=== PATIENT | female | born 1990 | race Native Hawaiian/Other Pacific Islander ===

== ENCOUNTER 2018-07-06 12:36 | Emergency (ER) | payer OTHER ==
[2018-07-06 13:14] LABS: Basophils # (Auto) 0.1 K/mm3 (0.0-0.1); Basophils % (Auto) 0.6 % (0.0-1.8); Eosinophils # (Auto) 0.5 K/mm3 (0.0-0.4); Eosinophils % (Auto) 3.4 % (0.0-4.3); Hematocrit 40.7 % (30.3-42.9); Hemoglobin 13.1 gm/dl (10.1-14.3); Lymphocytes # (Auto) 2.7 K/mm3 (1.2-5.4); Lymphocytes % (Auto) 19.6 % (13.4-35.0); Mean Corpuscular HGB Conc 32 % (30-34); Mean Corpuscular Hemoglobin 27 pg (28-32); Mean Corpuscular Volume 84 fl (79-97); Monocytes # (Auto) 0.8 K/mm3 (0.0-0.8); Monocytes % (Auto) 6.2 % (0.0-7.3); Platelet Count 260 K/mm3 (140-440); Red Blood Count 4.84 M/mm3 (3.65-5.03); Red Cell Distribution Width 15.3 % (13.2-15.2)
--- NOTE | 2018-07-06 13:34 | Cat Scan Report ---
CT HEAD WITHOUT CONTRAST INDICATION: Altered mental status. COMPARISON: None similar. FINDINGS: Noncontrast head CT somewhat limited due to patient's head tilt/positioning, though demonstrates normal ventricles and sulci without acute or recent infarct, hemorrhage, mass effect or midline shift. No abnormal extra-axial fluid collections. Posterior fossa structures and basilar cisterns appear within normal limits. Symmetric eye globes. Rightward nasal septal bowing. Approximately 1.5 cm left and a 0.8 cm right maxillary sinus polyps or mucous retention cysts inferiorly. Clear remainder imaged paranasal sinuses and mastoid air cells. Intact calvarium. Normal overlying scalp soft tissues. An oral piercing and a small radiopaque dental filling incidentally noted. CONCLUSION: No acute intracranial CT abnormality with bilateral maxillary sinus disease noted, as described. Thank you for the opportunity to participate in this patient's care.
[2018-07-06 13:36] LABS: Alanine Aminotransferase 12 units/L (7-56); Albumin 4.3 g/dL (3.9-5); BUN/Creatinine Ratio 15; Blood Urea Nitrogen 9 mg/dL (7-17); Hemolysis Index 4
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
[2018-07-06] MEDS ORDERED: NACL 0.9% 1000 ML 1,000 ML IV ONE (14:16)
[2018-07-06 14:20] LABS: Bilirubin,Urine Negative (Negative); Blood,Urine Negative (Negative); Color,Urine Straw (Yellow)
[2018-07-06 14:21] LABS: Mucus,Urine Few /HPF; Protein,Urine <15 mg/dL mg/dL (Negative); RBC,Urine < 1.0 /HPF (0.0-6.0); Urobilinogen,Urine < 2.0 mg/dL (<2.0); WBC,Urine < 1.0 /HPF (0.0-6.0)
[2018-07-06 14:36] LABS: Cocaine Screen,Urine PRESUMPTIVE NEGATIVE; Methadone Screen,Urine PRESUMPTIVE NEGATIVE; Opiate Screen,Urine PRESUMPTIVE NEGATIVE
[2018-07-06 14:48] LABS: Amphetamine Screen,Urine PRESUMPTIVE POSITIVE; Benzodiazepines Screen,Urine PRESUMPTIVE POSITIVE; Cannabinoid Screen,Urine PRESUMPTIVE POSITIVE
--- NOTE | 2018-07-06 15:49 | XRay Report ---
LEFT KNEE RADIOGRAPHS INDICATION: Lateral superior tibial bruising. COMPARISON: None similar. FINDINGS: AP, lateral and oblique left knee radiographs demonstrate intact bony articulation. Proximal tibial metadiaphyseal corticomedullary junction sclerosis laterally incidentally noted. No suprapatellar effusion. Slight soft tissue heterogeneity may overlie the proximal fibular end. CONCLUSION: No acute left knee bony abnormality, as described. Thank you for the opportunity to participate in this patient's care.
--- NOTE | 2018-07-06 15:51 | XRay Report ---
Left TIBIA AND FIBULA RADIOGRAPHS INDICATION: Lateral superior tibial bruising. COMPARISON: None similar. FINDINGS: AP and lateral left tibia and fibula radiographs demonstrate intact bones. Proximal tibial metadiaphyseal corticomedullary junction sclerosis laterally incidentally noted. Slight soft tissue heterogeneity may overlie the proximal fibular end. Included knee and ankle articulations appear unremarkable as well. CONCLUSION: No acute bony abnormality. Thank you for the opportunity to participate in this patient's care.
[2018-07-07] MEDS ORDERED: TORADOL ONE (00:50)
[2018-07-07] MEDS ORDERED: TORADOL IV ONE (00:52)
[2018-07-07 05:09] VITALS: BP 120/67
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
== END 2018-07-07 07:13 | disposition home or self-care (01) ==
LOC: ED 12:36
DX: S80.12XA Contusion of left lower leg, initial encounter (principal); F15.10 Other stimulant abuse, uncomplicated; F12.90 Cannabis use, unspecified, uncomplicated; F29 Unspecified psychosis not due to a substance or known physiological condition; X58.XXXA Exposure to other specified factors, initial encounter; Y93.89 Activity, other specified; Y92.89 Other specified places as the place of occurrence of the external cause; Y99.8 Other external cause status
CPT/HCPCS: 36415; 70450; 73562; 73590; 80053; 80307; 81001; 82550; 82962; 84443; 84703; 85025; 93005; 93010; 96374; 99285; G0480; J1885; 80320

== ENCOUNTER 2022-04-03 12:14 | Emergency (ER) | payer MEDICAID, OTHER ==
[2022-04-03] MEDS ORDERED: KETOROLAC 10 MG TAB PO ONE (13:53)
[2022-04-03] MEDS ORDERED: dexAMETHasone 4 MG/ML VIAL IM ONE (13:53)
[2022-04-03] MEDS ORDERED: oxyCODONE /ACETAMINOPHEN 5-325MG TAB PO ONE (13:54)
[2022-04-03] MEDS ORDERED: AMOXICILLIN/K CLAV 875/125MG TAB PO ONE (13:54)
--- NOTE | 2022-04-03 13:57 | Emergency Department Report ---
ED ENT HPI - General Chief complaint: Dental/Oral Stated complaint: ABSCESS TOOTH Time Seen by Provider: 04/03/22 13:28 Source: patient Mode of arrival: Ambulatory Limitations: No Limitations - History of Present Illness Initial comments: 31-year-old female presents to the emergency department for evaluation of tooth ache and facial swelling. She states that she woke up with symptoms and denies fever. She states that she has not taken any medication for her symptoms. MD complaint: tooth pain -: Sudden, This morning Location: tooth # (2) Severity: severe Severity scale (0 -10): 10 Quality: aching Consistency: constant Worsens with: other (Palpation) Associated Symptoms: gum swelling, toothache. denies: fever, cough, pain with swallowing, sore throat - Related Data Previous Rx's Medication Instructions Recorded Last Taken Type Acetaminophen/Codeine [Tylenol 1 tab PO Q6H PRN #12 tab 04/03/22 Unknown Rx /Codeine # 3 tab] Amoxicillin/K Clav Tab [Augmentin 1 tab PO BID 7 Days #14 tab 04/03/22 Unknown Rx 875 mg] Ketorolac [Toradol] 10 mg PO Q6H PRN #12 tab 04/03/22 Unknown Rx Allergies Allergy/AdvReac Type Severity Reaction Status Date / Time No Known Allergies Allergy Unverified 07/07/18 00:52 ED Dental HPI - General Chief complaint: Dental/Oral Stated complaint: ABSCESS TOOTH Time Seen by Provider: 04/03/22 13:28 Source: patient Mode of arrival: Ambulatory Limitations: No Limitations - Related Data Previous Rx's Medication Instructions Recorded Last Taken Type Acetaminophen/Codeine [Tylenol 1 tab PO Q6H PRN #12 tab 04/03/22 Unknown Rx /Codeine # 3 tab] Amoxicillin/K Clav Tab [Augmentin 1 tab PO BID 7 Days #14 tab 04/03/22 Unknown Rx 875 mg] Ketorolac [Toradol] 10 mg PO Q6H PRN #12 tab 04/03/22 Unknown Rx Allergies Allergy/AdvReac Type Severity Reaction Status Date / Time No Known Allergies Allergy Unverified 07/07/18 00:52 ED Review of Systems ROS: Stated complaint: ABSCESS TOOTH Other details as noted in HPI Comment: All other systems reviewed and negative Constitutional: denies: chills, fever Eyes: denies: vision change ENT: dental pain. denies: throat pain, congestion Respiratory: denies: shortness of breath Cardiovascular: denies: chest pain, palpitations Gastrointestinal: denies: abdominal pain, nausea, vomiting Musculoskeletal: denies: back pain Neurological: denies: headache ED Past Medical Hx - Social History Smoking Status: Unknown if ever smoked - Medications Home Medications: Home Medications Medication Instructions Recorded Confirmed Last Taken Type Acetaminophen/Codeine [Tylenol 1 tab PO Q6H PRN #12 tab 04/03/22 Unknown Rx /Codeine # 3 tab] Amoxicillin/K Clav Tab [Augmentin 1 tab PO BID 7 Days #14 tab 04/03/22 Unknown Rx 875 mg] Ketorolac [Toradol] 10 mg PO Q6H PRN #12 tab 04/03/22 Unknown Rx ED Physical Exam - General Limitations: No Limitations General appearance: alert, in no apparent distress - Head Head exam: Present: atraumatic, normocephalic - Eye Eye exam: Present: normal appearance. Absent: conjunctival injection - Expanded ENT Exam Expanded Teeth exam: Present: dental caries, dental tenderness # (To), other (Abscess, erythema, and swelling noted to gums around tooth #2). Absent: normal inspection Throat exam: Positive: normal inspection. Negative: tonsillar erythema, tonsillomegaly, tonsillar exudate, R peritonsillar mass, L peritonsillar mass - Neck Neck exam: Present: normal inspection - Respiratory Respiratory exam: Absent: respiratory distress - Cardiovascular Cardiovascular Exam: Present: regular rate - GI/Abdominal GI/Abdominal exam: Absent: distended - Extremities Exam Extremities exam: Present: normal inspection - Back Exam Back exam: Present: normal inspection - Neurological Exam Neurological exam: Present: alert, oriented X3 - Psychiatric Psychiatric exam: Present: normal affect, normal mood - Skin Skin exam: Present: warm, dry, intact, normal color ED Course Vital Signs 04/03/22 04/03/22 04/03/22 12:36 15:08 15:09 Temperature 98.2 F Pulse Rate 98 H Respiratory 16 14 14 Rate Blood Pressure 142/93 O2 Sat by Pulse 100 Oximetry ED Medical Decision Making - Medical Decision Making 31-year-old female presents to the emergency department for evaluation of tooth ache and facial swelling. She states that she woke up with symptoms and denies fever. She states that she has not taken any medication for her symptoms. Exam consistent with dental abscess to tooth #2. Patient treated with one-time dose of Decadron, Percocet, Augmentin, amatory in the emergency department and discharged home with Augmentin, Toradol, and Tylenol 3 to take as directed. She is advised to follow-up with with dentist as soon as possible and return to the emergency department as needed. She verbalizes understanding of and agreement with plan of care. Critical care attestation.: If time is entered above; I have spent that time in minutes in the direct care of this critically ill patient, excluding procedure time. ED Disposition Clinical Impression: Dental abscess Disposition: 01 HOME / SELF CARE / HOMELESS Is pt being admited?: No Does the pt Need Aspirin: No Condition: Stable Instructions: Dental Abscess, [id number], Preventive Dental Care, Adult Additional Instructions: Take medications as prescribed. Follow-up with dentist for further evaluation and management. Return to the emergency department as needed. Prescriptions: Amoxicillin/K Clav Tab [Augmentin 875 mg] 1 tab PO BID 7 Days #14 tab Ketorolac [Toradol] 10 mg PO Q6H PRN #12 tab PRN Reason: Pain Acetaminophen/Codeine [Tylenol /Codeine # 3 tab] 1 tab PO Q6H PRN #12 tab PRN Reason: Pain , Severe (7-10) Referrals: [facility] [Outside] - 3-5 Days [facility] [Outside] - 3-5 Days Forms: Work/School Release Form(ED) Time of Disposition: 13:57
[2022-04-03 16:13] VITALS: BP 118/80
== END 2022-04-03 15:59 | disposition home or self-care (01) ==
LOC: ED 12:14
DX: K04.7 Periapical abscess without sinus (principal)
CPT/HCPCS: 96372; 99282; J1100